=== PATIENT | female | born 1975 | race Caucasian/White ===

== ENCOUNTER → 2017-01-04 | Emergency (ER) | payer BC, OTHER ==
[~2017-01-04] MED LIST: METOCLOPRAMIDE HCL INJECTION 10 MG/2 ML VIAL IVPB ONE; METOCLOPRAMIDE HCL INJECTION 10 MG/2 ML VIAL ONE; PROCHLORPERAZINE INJECTION 10 MG/2 ML VIAL IVPB ONE; SODIUM CHLORIDE 1,000 ML IV STA
[2017-01-04 19:26] VITALS: BMI 23.2
[2017-01-04 20:23] LABS: BASOPHIL 0.3 % (0-2.0); EOSINOPHIL 0.3 % (0-4.5); MCH 30.4 pg (25.7-33.7); MCHC 33.7 g/dl (32.0-36.0); MEAN CELL VOLUME 90.1 fl (80-96); MEAN PLT VOLUME 9.2 fl (7.5-11.1); NEUTROPHILS 85.9 % (42.8-82.8); PLATELET COUNT 275 K/MM3 (134-434); RDW 13.7 % (11.6-15.6); WHITE BLOOD COUNT 11.5 K/mm3 (4.0-10.0)
--- NOTE | 2017-01-04 20:39 | PDOC ---
History of Present Illness - General Chief Complaint: Lightheaded Stated Complaint: DIZZINESS Time Seen by Provider: 01/04/17 19:25 History Source: Patient, Significant Other Exam Limitations: No Limitations - History of Present Illness Initial Comments: 01/04/17 20:34 41yo Female patient w/ no significant past medical history presents to ED c/o lightheaded/dizziness w/ n/v sudden onset. Patient reports symptoms began 1430 w / weird sensation in head, dizziness, and nauseous. Patient drove home; vomited x 4 and "laid down for a bit." She states upon standing up, she really felt weird again (unable to explain) and at this time ask to drive her in to ED. Patient only notes ongoing back pain x 1 month relieved with Zillah Adel. LNMP: 1 week ago. Denies any other complaints at this time. Timing/Duration: 4-6 hours Severity: moderate Modifying Factors: worse with: cold therapy, eating, immobilization, medication , movement, rest, other Associated Symptoms: reports: nausea/vomiting, weakness Aspirin Received prior to arrival: No: no aspirin today, unknown, 81 mg x 1, 81 mg x 2, 81 mg x 3, 81 mg x 4, 325 mg x 1, provided at home, provided by EMS, provided by [facility] Contraindications(Core Measure): No: Allergy, Other, Active Blding w/i 24 hrs., Plavix, Receiving Warfarin Past History - Travel Traveled outside of the country in the last 30 days: No Close contact w/someone who was outside of country & ill: No - Past Medical History Allergies/Adverse Reactions: Allergies Allergy/AdvReac Type Severity Reaction Status Date / Time No Known Allergies Allergy Verified 01/04/17 19:24 Home Medications: Ambulatory Orders Meclizine HCl [Antivert -] 25 mg PO TID PRN #21 tablet 01/05/17 Ondansetron [Zofran Odt -] 4 mg SL Q6H PRN #20 od.tablet 01/05/17 Anemia: No Asthma: No Cancer: No Cardiac Disorders: No CVA: No COPD: No DVT: No Dementia: No Diabetes: No Dialysis: No GI Disorders: No Disorders: No HTN: No Hypercholesterolemia: No HIV: No Kidney Stones: No Liver Disease: No Psychiatric Problems: No Seizures: No Thyroid Disease: No Lung CA: No - Surgical History Abdominal Surgery: No Appendectomy: No Cardiac Surgery: No Cholecystectomy: No Gastric Stapling: No GI Surgery: No Lung Surgery: No Neurologic Surgery: No - Immunization History Immunization Up to Date: Yes - Psycho/Social/Smoking Cessation Hx Suicidal Ideation: No Smoking History: Never smoked Review of Systems - Review of Systems Able to Perform ROS?: Yes Is the patient limited Citizen Of [place] proficient: No Constitutional: Yes: Weakness. No: Chills, Fever, Malaise HEENTM: No: Blurred Vision, Double Vision Respiratory: No: Cough, Shortness of Breath, Stridor, Wheezing Cardiac (ROS): Yes: Lightheadedness. No: Chest Pain, Palpitations, Syncope, Chest Tightness ABD/GI: Yes: Nausea, Poor Fluid Intake, Vomiting. No: Constipated, Diarrhea, Poor Appetite, Abdominal cramping : No: Burning, Dysuria, Flank Pain, Hematuria Musculoskeletal: Yes: Back Pain Integumentary: No: Rash, Sweating Neurological: Yes: Weakness. No: Headache, Seizure All Other Systems: Reviewed and Negative *Physical Exam - Vital Signs Last Vital Signs Temp Pulse Resp BP Pulse Ox 98.3 F 121 H 20 123/78 98 01/04/17 19:24 01/04/17 19:24 01/04/17 19:24 01/04/17 19:24 01/04/17 19:24 - Physical Exam Comments: 01/04/17 20:41 Patient able to perform mini mental test successfully. NIH-0 General Appearance: Yes: Nourished, Appropriately Dressed. No: Apparent Distress, Mild Distress, Moderate Distress, Severe Distress HEENT: positive: EOMI, MICHAEL, Normal ENT Inspection, Normal Voice, Symmetrical, TMs Normal, Pharynx Normal. negative: Nasal Congestion, Rhinorrhea, Sinus Tenderness, TM Bulging, TM Dull, TM Erythema Neck: positive: Trachea midline, Normal Thyroid, Supple. negative: Stridor, Lymphadenopathy (R), Lymphadenopathy (L) Respiratory/Chest: positive: Lungs Clear, Normal Breath Sounds. negative: Respiratory Distress, Accessory Muscle Use, Labored Respiration, Rapid RR, Decreased Breath Sounds, Crackles, Rales, Rhonchi, Stridor, Wheezing Cardiovascular: positive: Tachycardia. negative: JVD Gastrointestinal/Abdominal: positive: Normal Bowel Sounds, Soft, Distended. negative: Tender, Flat, Guarding, Rebound, Tenderness Musculoskeletal: positive: Normal Inspection. negative: CVA Tenderness Extremity: positive: Normal Capillary Refill, Normal Inspection, Normal Range of Motion. negative: Pedal Edema, Swelling, Calf Tenderness Integumentary: positive: Normal Color, Dry, Warm. 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 negative: Motor Strength 5/5, Facial Droop, Numbness Heart Score/ECG Review - History History: Slightly suspicious - Electrocardiogram EKG: Normal - Age Age: </= 45 - Risk Factors Risk Factors Heart Score: No Hx Hypercholesterolemia, No Hx Hypertension, No Hx Diabetes, No Smoking History, No Positive family hx of cardiac disease, No Hx Obesity Based on the list above the patient has:: No risk factors known - Troponin Troponin: </= normal limit - Score Heart Score - Total: 0 - ECG Impressions Normal ECG: Yes Non-specific ST Elevation: No Ischemic Changes: No Bradycardia: No Torsades alba Pointes: No WPW: No ED Treatment Course - LABORATORY CBC & Chemistry Diagram: 01/04/17 20:10 01/04/17 20:10 - ADDITIONAL ORDERS Additional order review: 01/04/17 20:10 RBC 4.34 MCV 90.1 MCHC 33.7 RDW 13.7 MPV 9.2 Neutrophils % 85.9 H Lymphocytes % 9.7 Monocytes % 3.8 Eosinophils % 0.3 Basophils % 0.3 - RADIOLOGY Radiology Studies Ordered: Category Date Time Status HEAD CT WITHOUT CONTRAST [CT] Stat CT Scan 01/04/17 19:50 Ordered CHEST PA & LAT [RAD] Stat Radiology 01/04/17 19:50 Ordered - Medications Given in the ED: ED Medications Discontinued Medications Generic Name Dose Route Start Last Admin Trade Name Freq PRN Reason Stop Dose Admin Metoclopramide HCl 10 mg 01/04/17 19:50 01/04/17 20:22 Reglan Injection - IVPB 01/04/17 19:51 10 mg ONCE ONE Administration *DC/Admit/Observation/Transfer Diagnosis at time of Disposition: Vertigo - Discharge Dispostion Disposition: HOME Condition at time of disposition: Improved Admit: No - Prescriptions Prescriptions: Meclizine HCl [Antivert -] 25 mg PO TID PRN #21 tablet PRN Reason: DIZZINESS Ondansetron [Zofran Odt -] 4 mg SL Q6H PRN #20 od.tablet PRN Reason: Nausea - Referrals Referrals: Angelo Deng MD [Primary Care Provider] - Belkys Garcia MD [Staff Physician] - - Patient Instructions Printed Discharge Instructions: DI for Vertigo Additional Instructions: FOLLOW UP WITH DR. DENG EARLY NEXT WEEK FOR FURTHER EVALUATION. CALL TO SCHEDULE APPOINTMENT. ALSO, CONTACT DR. GARCIA (NEUROLOGY) REGARDING YOUR SYMPTOMS. SCHEDULE AN APPOINTMENT EARLY. TAKE MEDICATIONS PRESCRIBED. RETURN IF SYMPTOM GET WORSE OR ANY CONCERNS FOR FURTHER EVALUATION. Print Language: GEORGIAN - Post Discharge Activity Work/School Note: Back to Work
[2017-01-04 20:54] LABS: ALBUMIN 3.6 g/dl (3.4-5.0); AMYLASE 92 U/L (25-115); ANION GAP 9 (8-16); CALCIUM 8.6 mg/dL (8.5-10.1); CO2 26 mmol/L (21-32); GLUCOSE,RANDOM 111 mg/dL (74-106); SGOT/AST 20 U/L (15-37); SGPT/ALT 32 U/L (12-78)
[2017-01-04 20:59] LABS: ALK PHOS 69 U/L (45-117); BILIRUBIN,TOTAL 0.4 mg/dL (0.2-1.0); COCKROFT - GAULT 95.2085; CREATININE 0.7 mg/dL (0.55-1.02); TOT PROT 7.2 g/dl (6.4-8.2); TROPONIN I < 0.02 ng/ml (0.00-0.05)
[2017-01-04 23:09] LABS: URINE APPEARANCE CLEAR; URINE BILIRUBIN NEGATIVE (NEGATIVE); URINE BLOOD NEGATIVE (NEGATIVE); URINE COLOR COLORLESS; URINE GLUCOSE (UA) NEGATIVE (NEGATIVE); URINE KETONE NEGATIVE (NEGATIVE); URINE LEUK ESTERASE NEGATIVE (NEGATIVE); URINE NITRITE NEGATIVE (NEGATIVE); URINE PROTEIN NEGATIVE (NEGATIVE); URINE UROBILINOGEN NEGATIVE E.U./dl (0.2-1.0)
[2017-01-05 02:01] VITALS: BP 110/72; PULSE 90; TEMP 97.9
--- NOTE | 2017-01-05 09:57 | EKG ---
Test Reason : Blood Pressure : / mmHG Vent. Rate : 084 BPM Atrial Rate : 084 BPM P-R Int : 142 ms QRS Dur : 092 ms QT Int : 400 ms P-R-T Axes : 055 027 035 degrees QTc Int : 472 ms NORMAL SINUS RHYTHM INCOMPLETE RIGHT BUNDLE BRANCH BLOCK NO PREVIOUS ECGS AVAILABLE Confirmed by DAMIAN DUMONT MD ([id number]) on 01/05/2017 9:56:52 AM Referred By: Confirmed By:DAMIAN DUMONT MD
== END | disposition home or self-care (01) ==
LOC: JER 19:10
PROC: 3E0337Z Introduction of Electrolytic and Water Balance Substance into Peripheral Vein, Percutaneous Approach (ICD-10-PCS; principal; 2017-01-04)
PROC: 3E033GC Introduction of Other Therapeutic Substance into Peripheral Vein, Percutaneous Approach (ICD-10-PCS; 2017-01-04)
PROC: 3E033GC Introduction of Other Therapeutic Substance into Peripheral Vein, Percutaneous Approach (ICD-10-PCS; 2017-01-04)
DX: R42 Dizziness and giddiness (principal)
CPT/HCPCS: 36415; 70450-TC; 70496-TC; 70498-TC; 71020-TC; 80053; 81003; 82150; 82550; 83690; 84484; 84703; 85025; 93005; 93010; 99282-25

== ENCOUNTER 2020-09-06 13:18 | Emergency (ER) | payer OTHER | END 2020-09-06 14:01 | disposition home or self-care (01) | LOC: JVIRT 13:18 | DX: R51.9 Headache, unspecified (principal); M79.10 Myalgia, unspecified site; Z20.828 Contact with and (suspected) exposure to other viral communicable diseases | CPT/HCPCS: C9803; G2012-GT; U0003 ==

== ENCOUNTER 2023-03-18 05:28 | Day surgery (SDC) | payer OTHER ==
[2023-03-13 14:33] VITALS: BMI 26.0
[2023-03-18 09:39] VITALS: TEMP 97.2
[2023-03-18 10:15] VITALS: BP 117/70; PULSE 66; RESP 14
== END 2023-03-18 10:25 | disposition home or self-care (01) ==
LOC: JASU-ENDO 05:28
PROVIDERS: ATTEND Internal Medicine Gastroenterology
PROC: 0DJD8ZZ Inspection of Lower Intestinal Tract, Via Natural or Artificial Opening Endoscopic (ICD-10-PCS; principal; 2023-03-18 09:00)
DX: Z12.11 Encounter for screening for malignant neoplasm of colon (principal); K64.8 Other hemorrhoids; Z83.71 Family history of colonic polyps
CPT/HCPCS: 81025

== ENCOUNTER 2023-10-25 20:58 | Emergency (ER) | payer OTHER ==
[2023-10-25 21:09] VITALS: BP 129/73; PULSE 83; RESP 18; TEMP 99.4; BMI 24.3
[2023-10-25 21:46] LABS: HEMATOCRIT 41.8 % (32.4-45.2); HEMOGLOBIN 13.9 G/dL (10.7-15.3); MCH 30.6 pg (25.7-33.7); MCHC 33.3 g/dl (32.0-36.0); MEAN CELL VOLUME 91.8 fl (80-96); MEAN PLT VOLUME 8.9 fl (7.5-11.1); PLATELET COUNT 265.6 10^3/uL (134-434); RBC 4.55 10^6/uL (3.60-5.2); RDW 14.5 % (11.6-15.6); WHITE BLOOD COUNT 7.9 10^3/uL (4.0-10.8)
[2023-10-25 22:04] LABS: ALBUMIN 4.5 g/dl (3.4-5.0); BILIRUBIN,TOTAL 0.4 mg/dl (0.2-1); CREATININE 0.9 mg/dl (0.6-1.3); POTASSIUM 3.9 mmol/L (3.5-5.1); TOT PROT 7.2 g/dl (6.4-8.2)
[2023-10-25 22:10] LABS: PLATELET ESTIMATE ADEQUATE
== END 2023-10-25 23:40 | disposition home or self-care (01) ==
LOC: FER 20:58
DX: R00.2 Palpitations (principal); G47.63 Sleep related bruxism
CPT/HCPCS: 36415; 70450-TC; 80053; 84484; 84703; 85027; 93005; 99285-25

== ENCOUNTER 2024-07-02 19:41 | Emergency (ER) | payer OTHER ==
[2024-07-02 19:57] VITALS: BP 147/83; PULSE 79; RESP 18; TEMP 97.3; BMI 23.8
[2024-07-02] MEDS ORDERED: KETOROLAC TROMETHAMINE 30 MG/1 ML VIAL ONE (21:05)
[2024-07-02] MEDS: KETOROLAC TROMETHAMINE 60 MG/2 ML VIAL IM ONE (21:05)
[2024-07-02] MEDS: KETOROLAC TROMETHAMINE 30 MG/1 ML VIAL IM ONE (21:15)
== END 2024-07-02 22:35 | disposition home or self-care (01) ==
LOC: JER 19:41
PROC: 3E0233Z Introduction of Anti-inflammatory into Muscle, Percutaneous Approach (ICD-10-PCS; principal; 2024-07-02)
DX: G44.309 Post-traumatic headache, unspecified, not intractable (principal); V00.111A Fall from in-line roller-skates, initial encounter; Y93.51 Activity, roller skating (inline) and skateboarding
CPT/HCPCS: 99284-25